=== PATIENT | female | born 1950 | race Two or more races ===

== ENCOUNTER → 2020-05-11 | Emergency (ER) | payer MEDICARE, OTHER ==
[~2020-05-11] VITALS: Ht 167.6 cm; Wt 90.7 kg
[2020-05-11 01:00] VITALS: BP 134/77
[2020-05-11 01:17] LABS: Basophils # (auto) 0.1 10 ^3/uL (0-0.2); Basophils % (auto) 0.6 % (0.0-2.0); Eosinophils # (auto) 0.3 10 ^3/uL (0-0.8); Eosinophils % (auto) 3.2 % (0.0-7.0); Hematocrit 40.3 % (36.0-46.0); Hemoglobin 13.8 g/dL (12.2-16.2); Lymphocytes # (auto) 1.8 10 ^3/uL (0.4-5.4); Lymphocytes % (auto) 20.1 % (10.0-50.0); Mean Corpuscular Hemoglobin 29.7 pg (28.0-32.0); Mean Corpuscular Hgb Conc. 34.1 g/dL (32.0-36.0); Monocytes # (auto) 0.7 10 ^3/uL (0-1.3); Monocytes % (auto) 8.3 % (0.0-12.0); Neutrophils # (auto) 6.1 10 ^3/uL (1.6-8.6); Neutrophils % (auto) 67.8 % (37.0-80.0); Nucleated Red Blood Cells % 0.1 %; Platelet Count (auto) 193 10^3/uL (140-450); Red Blood Cells 4.64 10^6/uL (4.0-5.20); Red Cell Distribution Width 14.1 % (11.8-14.3)
[2020-05-11 01:31] LABS: INR 1.03 (0.9-1.15); Partial Thromboplastin Time 30.5 sec (23.64-32.05)
[2020-05-11 01:46] LABS: Alanine Aminotransferase 35 U/L (13-56); Albumin 3.4 g/dL (3.4-5.0); Anion Gap 5 (5-15); Aspartate Aminotransferase 23 U/L (15-37); Blood Urea Nitrogen 16 mg/dL (7-18); Calcium 8.6 mg/dL (8.5-10.1); Carbon Dioxide 27 mmol/L (21-32); Chloride 107 mmol/L (98-107); GFR African American 71 mL/min; GFR Non-African American 59 mL/min; Glucose 137 mg/dL (74-106); Magnesium 2.2 mg/dL (1.6-2.6); Potassium 3.8 mmol/L (3.5-5.1); Sodium 139 mmol/L (136-145)
[2020-05-11 01:52] LABS: Alkaline Phosphatase 82 U/L (45-117); Bilirubin, Total 0.2 mg/dL (0.2-1.0); Total Protein 7.3 g/dL (6.4-8.2)
== END | disposition home or self-care (01) ==
LOC: EDUNIT# 00:05 → EDBD 00:09 → ER 00:12
DX: R00.2 Palpitations (principal); J44.9 Chronic obstructive pulmonary disease, unspecified; I10 Essential (primary) hypertension
CPT/HCPCS: 36415; 71045; 80053; 83735; 83880; 84443; 84484; 85025; 85610; 85730; 93005

== ENCOUNTER 2021-12-24 22:43 | Inpatient (IN) | payer MEDICARE, OTHER ==
[~2021-12-24] VITALS: Ht 167.6 cm; Wt 83.6 kg
[2021-12-24] MEDS ORDERED: METOPROLOL TARTRATE 1MG/1ML-5ML VIAL IV ONE ×2 (23:24→23:30)
[2021-12-25] MEDS ORDERED: dilTIAZem 25 MG/5 ML VIAL IV ONE (00:30)
[2021-12-25] MEDS ORDERED: dilTIAZem 125mg/125ml BAG KIT 125 ML IV ONE (01:15)
[2021-12-25 01:21] LABS: Hematocrit 35.1 % (36.0-46.0); Hemoglobin 11.4 g/dL (12.2-16.2); Mean Corpuscular Hemoglobin 28.7 pg (28.0-32.0); Mean Corpuscular Hgb Conc. 32.4 g/dL (32.0-36.0); Mean Corpuscular Volume 88.3 fL (80.0-100.0); Red Blood Cells 3.98 10^6/uL (4.0-5.20); Red Cell Distribution Width 15.2 % (11.8-14.3); White Blood Cell 16.3 10^3/uL (4.4-10.8)
[2021-12-25] MEDS ORDERED: NOREPINEPHRINE 8 MG/250ML KIT 250 ML IV ONE (01:37)
[2021-12-25 01:39] LABS: Albumin 2.1 g/dL (3.4-5.0); BUN/Creatinine Ratio 26.7; Basophils % (manual) 0 (0.0-2.0); Blast Cells 0; Calcium 8.5 mg/dL (8.5-10.1); Eosinophils % (manual) 0 (0-7); Metamyelocytes % 0; Promyelocytes % 0; Reactive Lymphocytes 0
[2021-12-25 01:41] LABS: Bilirubin, Total 0.5 mg/dL (0.2-1.0); Total Protein 6.8 g/dL (6.4-8.2)
[2021-12-25] MEDS ORDERED: NOREPINEPHRINE 8 MG/250ML KIT 250 ML IV SCH (01:45)
[2021-12-25 02:01] LABS: Band Neutrophils % (manual) 7; Lymphocytes % (manual) 8 (10.0-50.0); Monocytes % (manual) 2 (0-12); Myelocytes % 1
[2021-12-25 03:19] LABS: Urine Bacteria MOD /hpf (None Seen); Urine Blood Negative /uL (Negative); Urine Hyaline Cast FEW /lpf (0 - 2); Urine Mucus FEW (None Seen); Urine WBC 6 /hpf (0 - 5)
[2021-12-25] MEDS ORDERED: MORPHINE SULFATE INJECTION 2 MG/ML SYRG IV PRN ×3 (09:45→14:30)
[2021-12-25] MEDS ORDERED: ONDANSETRON HCL 4 MG/2 ML VIAL IV PRN (09:45)
[2021-12-25] MEDS ORDERED: HYDROcodone-ACET 5/325MG TAB PO PRN ×2 (10:00→14:30)
[2021-12-25] MEDS: dilTIAZem 125mg/125ml BAG KIT 100 ML IV SCH ×2 (10:11→16:35)
[2021-12-25] MEDS: NOREPINEPHRINE BITARTRATE 16 MG in SODIUM CHL 0.9% 234 ML IV SCH (14:20)
[2021-12-25] MEDS ORDERED: AZITHROMYCIN 500MG/ 250ML 250 ML IV ONE (14:30)
[2021-12-25] MEDS ORDERED: ALBUMIN 25% 100 ML IV ONE ×2 (14:30→15:00)
[2021-12-25] MEDS ORDERED: ALUM & MAG HYDROX-SIMETH LIQ(MAALOX) 30 ML PO PRN (14:30)
[2021-12-25] MEDS ORDERED: FUROSEMIDE 20 MG/2 ML VIAL IV ONE (14:30)
[2021-12-25] MEDS ORDERED: NITROGLYCERIN 0.4 MG SL TAB SL PRN (14:30)
[2021-12-25] MEDS ORDERED: LORazepam 0.5 MG TAB PO PRN (14:30)
[2021-12-25 15:24] LABS: BUN/Creatinine Ratio 31.3; Calcium 9.5 mg/dL (8.5-10.1); Potassium 3.2 mmol/L (3.5-5.1)
[2021-12-25] MEDS ORDERED: AMIODARONE HCL 150 MG in D5W 5% 100 ML IV ONE (15:30)
[2021-12-25] MEDS ORDERED: DIGOXIN (250MCG/ML) 2 ML AMPULE IV ONE (15:30)
[2021-12-25] MEDS ORDERED: AMIODARONE 450mg/250ml AE 250 ML IV SCH (15:45)
[2021-12-25 15:47] LABS: INR 1.17 (0.9-1.15); Partial Thromboplastin Time 28.9 sec (23.6-33.0)
[2021-12-25] MEDS ORDERED: POTASSIUM EFFERVESENT TAB 25 MEQ PO ONE (16:00)
[2021-12-25] MEDS: DIGOXIN (250MCG/ML) 2 ML AMPULE IV SCH ×2 (17:22→22:16)
[2021-12-25] MEDS: SODIUM CHLOR 0.9% PF (SALINE LOCK) 10ML VIAL/SYR IV SCH (22:04)
[2021-12-25] MEDS: AMIODARONE 450mg/250ml AE 250 ML IV SCH (22:34)
[2021-12-26] MEDS: DIGOXIN (250MCG/ML) 2 ML AMPULE IV SCH (05:32)
[2021-12-26] MEDS: SODIUM CHLOR 0.9% PF (SALINE LOCK) 10ML VIAL/SYR IV SCH ×3 (05:33→22:02)
[2021-12-26 07:51] LABS: Hemoglobin 10.1 g/dL (12.2-16.2); Mean Corpuscular Hemoglobin 28.7 pg (28.0-32.0); Mean Corpuscular Hgb Conc. 32.6 g/dL (32.0-36.0); Mean Corpuscular Volume 87.8 fL (80.0-100.0); Red Blood Cells 3.53 10^6/uL (4.0-5.20); Red Cell Distribution Width 15.4 % (11.8-14.3); White Blood Cell 13.5 10^3/uL (4.4-10.8)
[2021-12-26 07:59] LABS: Band Neutrophils % (manual) 0; Basophils % (manual) 0 (0.0-2.0); Blast Cells 0; Eosinophils % (manual) 0 (0-7); Metamyelocytes % 0; Promyelocytes % 0; Reactive Lymphocytes 0
[2021-12-26 08:18] LABS: Potassium 4.1 mmol/L (3.5-5.1)
[2021-12-26 08:26] LABS: BUN/Creatinine Ratio 30.8; Calcium 9.2 mg/dL (8.5-10.1)
[2021-12-26 08:52] LABS: Lymphocytes % (manual) 5 (10.0-50.0); Monocytes % (manual) 6 (0-12); Myelocytes % 2
[2021-12-26] MEDS: NOREPINEPHRINE BITARTRATE 16 MG in SODIUM CHL 0.9% 234 ML IV SCH (12:25)
[2021-12-26] MEDS: AMIODARONE 450mg/250ml AE 250 ML IV SCH (13:07)
[2021-12-26] MEDS: ONDANSETRON HCL 4 MG/2 ML VIAL IV PRN ×2 (13:52→15:47)
[2021-12-26] MEDS ORDERED: FUROSEMIDE 40 MG/4 ML VIAL IV ONE (14:15)
[2021-12-26] MEDS: ALBUTEROL SULF 2.5 MG/0.5ML(0.5%) NEB SOLN NEB SCH ×3 (14:25→22:32)
[2021-12-26] MEDS: IPRATROPIUM BROM 0.5 MG/2.5ML INH SOL NEB SCH ×3 (14:25→22:32)
[2021-12-27] MEDS: IPRATROPIUM BROM 0.5 MG/2.5ML INH SOL NEB SCH ×6 (02:00→22:17)
[2021-12-27] MEDS: ALBUTEROL SULF 2.5 MG/0.5ML(0.5%) NEB SOLN NEB SCH ×6 (02:00→22:17)
[2021-12-27] MEDS: dilTIAZem 125mg/125ml BAG KIT 100 ML IV SCH ×2 (02:13→21:45)
[2021-12-27] MEDS: SODIUM CHLOR 0.9% PF (SALINE LOCK) 10ML VIAL/SYR IV SCH ×2 (06:00→14:06)
[2021-12-27] MEDS: AMIODARONE 450mg/250ml AE 250 ML IV SCH ×2 (07:43→18:46)
[2021-12-27 07:57] LABS: Basophils # (auto) 0 10 ^3/uL (0-0.2); Basophils % (auto) 0.5 % (0.0-2.0); Eosinophils # (auto) 0 10 ^3/uL (0-0.8); Eosinophils % (auto) 0.4 % (0.0-7.0); Hematocrit 31.7 % (36.0-46.0); Hemoglobin 10.6 g/dL (12.2-16.2); Lymphocytes # (auto) 0.7 10 ^3/uL (0.4-5.4); Lymphocytes % (auto) 5.9 % (10.0-50.0); Mean Corpuscular Hemoglobin 29.3 pg (28.0-32.0); Mean Corpuscular Hgb Conc. 33.3 g/dL (32.0-36.0); Mean Corpuscular Volume 87.8 fL (80.0-100.0); Monocytes # (auto) 0.3 10 ^3/uL (0-1.3); Monocytes % (auto) 2.8 % (0.0-12.0); Neutrophils % (auto) 90.4 % (37.0-80.0); Nucleated Red Blood Cells % 0.2 %; Red Blood Cells 3.61 10^6/uL (4.0-5.20); Red Cell Distribution Width 15.1 % (11.8-14.3)
[2021-12-27 08:14] LABS: INR 1.06 (0.9-1.15); Partial Thromboplastin Time 27.7 sec (23.6-33.0)
[2021-12-27 08:25] LABS: Calcium 9.2 mg/dL (8.5-10.1); Potassium 3.7 mmol/L (3.5-5.1)
[2021-12-27] MEDS: FUROSEMIDE 20 MG/2 ML VIAL IV SCH (10:17)
[2021-12-27] MEDS: DIGOXIN 0.125 MG TAB PO SCH (10:17)
[2021-12-27] MEDS: NOREPINEPHRINE BITARTRATE 16 MG in SODIUM CHL 0.9% 234 ML IV SCH (11:00)
[2021-12-27] MEDS ORDERED: SODIUM CHLORIDE 0.9% 500 ML IV ONE (14:30)
[2021-12-27] MEDS ORDERED: POTASSIUM CHL 20 Meq TABLET PO ONE (14:30)
[2021-12-27] MEDS ORDERED: SODIUM CHLORIDE 0.9% 1,000 ML IV SCH (14:30)
[2021-12-27] MEDS ORDERED: DIGOXIN (250MCG/ML) 2 ML AMPULE IV ONE (15:15)
[2021-12-27] MEDS ORDERED: cefTRIAXone 1GM/50ML D5W 50 ML IV ONE (18:45)
[2021-12-28] MEDS: IPRATROPIUM BROM 0.5 MG/2.5ML INH SOL NEB SCH ×6 (02:13→21:39)
[2021-12-28] MEDS: ALBUTEROL SULF 2.5 MG/0.5ML(0.5%) NEB SOLN NEB SCH ×6 (02:14→21:38)
[2021-12-28 07:06] LABS: Basophils # (auto) 0 10 ^3/uL (0-0.2); Basophils % (auto) 0.1 % (0.0-2.0); Eosinophils # (auto) 0.1 10 ^3/uL (0-0.8); Eosinophils % (auto) 0.8 % (0.0-7.0); Hematocrit 28.3 % (36.0-46.0); Hemoglobin 9.4 g/dL (12.2-16.2); Lymphocytes # (auto) 0.8 10 ^3/uL (0.4-5.4); Lymphocytes % (auto) 6.6 % (10.0-50.0); Mean Corpuscular Hgb Conc. 33.2 g/dL (32.0-36.0); Mean Corpuscular Volume 87.3 fL (80.0-100.0); Monocytes # (auto) 0.4 10 ^3/uL (0-1.3); Monocytes % (auto) 2.9 % (0.0-12.0); Neutrophils % (auto) 89.6 % (37.0-80.0); Nucleated Red Blood Cells % 0.2 %; Red Blood Cells 3.24 10^6/uL (4.0-5.20); Red Cell Distribution Width 15.2 % (11.8-14.3); White Blood Cell 12.3 10^3/uL (4.4-10.8)
[2021-12-28 07:10] LABS: Calcium 8.7 mg/dL (8.5-10.1)
[2021-12-28 07:12] LABS: BUN/Creatinine Ratio 38.9
[2021-12-28] MEDS: SODIUM CHLOR 0.9% PF (SALINE LOCK) 10ML VIAL/SYR IV SCH ×3 (07:31→21:27)
[2021-12-28] MEDS: AMIODARONE 450mg/250ml AE 250 ML IV SCH (09:43)
[2021-12-28] MEDS ORDERED: dilTIAZem 120MG ER CAP PO SCH (10:00)
[2021-12-28] MEDS: FUROSEMIDE 20 MG/2 ML VIAL IV SCH (10:13)
[2021-12-28] MEDS: DIGOXIN 0.125 MG TAB PO SCH (10:13)
[2021-12-28] MEDS: NOREPINEPHRINE BITARTRATE 16 MG in SODIUM CHL 0.9% 234 ML IV SCH (11:00)
[2021-12-28] MEDS ORDERED: AMIODARONE HCL 200 MG TAB PO ONE (13:15)
[2021-12-28 16:26] VITALS: BP 95/54
[2021-12-28 16:49] VITALS: BP 98/52
[2021-12-28] MEDS ORDERED: INFLUENZA QUAD 2021-2022 0.5 ML SYRG IM ONE (17:15)
[2021-12-28] MEDS ORDERED: PNEUMOCOCCAL VACC POLYS 25 MCG/0.5 ML VIAL IM ONE (17:15)
[2021-12-28] MEDS: ONDANSETRON HCL 4 MG/2 ML VIAL IV PRN (20:36)
[2021-12-28] MEDS: AMIODARONE HCL 200 MG TAB PO SCH (21:28)
[2021-12-29 00:30] VITALS: BP 108/46
[2021-12-29] MEDS: IPRATROPIUM BROM 0.5 MG/2.5ML INH SOL NEB SCH ×3 (01:08→19:19)
[2021-12-29] MEDS: SODIUM CHLOR 0.9% PF (SALINE LOCK) 10ML VIAL/SYR IV SCH ×3 (05:55→21:58)
[2021-12-29] MEDS: ACETAMINOPHEN 325 MG TAB PO PRN ×2 (05:59→20:24)
[2021-12-29] MEDS: ALBUTEROL SULF 2.5 MG/0.5ML(0.5%) NEB SOLN NEB SCH (06:24)
[2021-12-29 09:00] VITALS: BP 110/52
[2021-12-29] MEDS: FUROSEMIDE 20 MG/2 ML VIAL IV SCH (09:28)
[2021-12-29] MEDS: DIGOXIN 0.125 MG TAB PO SCH (09:28)
[2021-12-29] MEDS: AMIODARONE HCL 200 MG TAB PO SCH ×2 (09:28→22:08)
[2021-12-29] MEDS: dilTIAZem 120MG ER CAP PO SCH ×2 (09:29→11:41)
[2021-12-29] MEDS ORDERED: POTASSIUM CHL 20 Meq TABLET PO ONE (13:30)
[2021-12-29 17:00] VITALS: BP 112/43
[2021-12-29] MEDS: LEVALBUTEROL HCL 1.25 MG/3 ML NEB NEB SCH (19:19)
[2021-12-29 22:00] VITALS: BP 120/51
[2021-12-30] MEDS: IPRATROPIUM BROM 0.5 MG/2.5ML INH SOL NEB SCH ×4 (00:23→19:41)
[2021-12-30] MEDS: LEVALBUTEROL HCL 1.25 MG/3 ML NEB NEB SCH ×4 (00:23→19:41)
[2021-12-30 05:13] VITALS: BP_SYST 121; BP_DIAS 54; BP_DIAS 61
[2021-12-30] MEDS: ACETAMINOPHEN 325 MG TAB PO PRN ×2 (05:49→22:57)
[2021-12-30] MEDS: SODIUM CHLOR 0.9% PF (SALINE LOCK) 10ML VIAL/SYR IV SCH ×3 (05:50→22:00)
[2021-12-30 06:01] LABS: Potassium 4.3 mmol/L (3.5-5.1)
[2021-12-30 06:19] LABS: BUN/Creatinine Ratio 34.7; Calcium 9.4 mg/dL (8.5-10.1); Magnesium 2.5 mg/dL (1.6-2.6)
[2021-12-30 09:00] VITALS: BP 121/61
[2021-12-30] MEDS: FUROSEMIDE 20 MG/2 ML VIAL IV SCH (11:39)
[2021-12-30] MEDS: dilTIAZem 120MG ER CAP PO SCH (11:40)
[2021-12-30] MEDS: AMIODARONE HCL 200 MG TAB PO SCH ×2 (11:41→22:46)
[2021-12-30 13:00] VITALS: BP 113/57
[2021-12-30 17:00] VITALS: BP 108/51
[2021-12-30] MEDS: ONDANSETRON HCL 4 MG/2 ML VIAL IV PRN (19:47)
[2021-12-30 22:00] VITALS: BP 116/55
[2021-12-31] MEDS: ACETAMINOPHEN 325 MG TAB PO PRN ×5 (04:22→22:10)
[2021-12-31 04:41] VITALS: BP 108/51
[2021-12-31] MEDS: LEVALBUTEROL HCL 1.25 MG/3 ML NEB NEB SCH ×4 (06:00→17:38)
[2021-12-31] MEDS: IPRATROPIUM BROM 0.5 MG/2.5ML INH SOL NEB SCH ×4 (06:00→17:38)
[2021-12-31] MEDS: SODIUM CHLOR 0.9% PF (SALINE LOCK) 10ML VIAL/SYR IV SCH ×3 (06:10→21:41)
[2021-12-31 08:45] VITALS: BP 115/47
[2021-12-31] MEDS: FUROSEMIDE 20 MG/2 ML VIAL IV SCH (10:19)
[2021-12-31] MEDS: dilTIAZem 120MG ER CAP PO SCH (10:20)
[2021-12-31] MEDS: AMIODARONE HCL 200 MG TAB PO SCH ×2 (10:20→22:10)
[2021-12-31] MEDS ORDERED: TAMS1CAP25 PO (13:55)
[2021-12-31] MEDS ORDERED: ONDA-144 PO (13:55)
[2021-12-31] MEDS ORDERED: ALL100T PO (13:55)
[2021-12-31] MEDS ORDERED: PANT40PA PO (13:55)
[2021-12-31] MEDS ORDERED: HYDR-4902 PO (13:55)
[2021-12-31] MEDS ORDERED: FLUT1SPR5 (13:55)
[2021-12-31] MEDS ORDERED: DEX4T PO (13:55)
[2021-12-31] MEDS ORDERED: FURO40TA4 PO (13:55)
[2021-12-31] MEDS ORDERED: [UNRECOGNIZED DRUG - CODE] PO (13:55)
[2021-12-31] MEDS ORDERED: POTA-220 PO (13:55)
[2021-12-31] MEDS ORDERED: ALBU108A5 IN (13:55)
[2021-12-31] MEDS ORDERED: [UNRECOGNIZED DRUG - CODE] IN (13:55)
[2021-12-31] MEDS ORDERED: PRAV20TA3 PO (13:55)
[2021-12-31] MEDS: DexAMETHasone 4 MG TAB PO SCH ×2 (16:04→22:10)
[2021-12-31 22:00] VITALS: BP 116/51
[2022-01-01] MEDS: LEVALBUTEROL HCL 1.25 MG/3 ML NEB NEB SCH ×3 (00:01→13:55)
[2022-01-01] MEDS: IPRATROPIUM BROM 0.5 MG/2.5ML INH SOL NEB SCH ×3 (00:01→13:55)
[2022-01-01 04:52] VITALS: BP 108/47
[2022-01-01] MEDS: SODIUM CHLOR 0.9% PF (SALINE LOCK) 10ML VIAL/SYR IV SCH ×2 (06:17→14:00)
[2022-01-01] MEDS: DexAMETHasone 4 MG TAB PO SCH ×2 (06:17→14:31)
[2022-01-01] MEDS: ACETAMINOPHEN 325 MG TAB PO PRN ×2 (07:45→14:31)
[2022-01-01] MEDS ORDERED: AMIO200T4 PO (09:03)
[2022-01-01] MEDS ORDERED: DILT120C12 PO (09:03)
[2022-01-01] MEDS: dilTIAZem 120MG ER CAP PO SCH (10:53)
[2022-01-01] MEDS: AMIODARONE HCL 200 MG TAB PO SCH (10:54)
[2022-01-01] MEDS: FUROSEMIDE 20 MG/2 ML VIAL IV SCH (10:54)
== END 2022-01-01 17:25 | disposition home or self-care (01) | DRG 871 ==
LOC: EDBD 22:43 → ER 22:43 → OVERFLOW 12-25 14:19 → UNDOADMIN 12-25 14:19 → TELE-CENTR 12-25 14:28 → OVERFLOW 12-28 15:00 → TELE-CENTR 12-28 15:00 → UNDODISIN 01-01 16:35
PROVIDERS: ADMIT Internal Medicine; ATTEND Internal Medicine
PROC: 02HV33Z Insertion of Infusion Device into Superior Vena Cava, Percutaneous Approach (ICD-10-PCS; principal; 2021-12-25)
DX: A41.9 Sepsis, unspecified organism (principal); R57.0 Cardiogenic shock; J18.9 Pneumonia, unspecified organism; I50.23 Acute on chronic systolic (congestive) heart failure; C34.90 Malignant neoplasm of unspecified part of unspecified bronchus or lung; J44.0 Chronic obstructive pulmonary disease with (acute) lower respiratory infection; J96.10 Chronic respiratory failure, unspecified whether with hypoxia or hypercapnia; Z20.822 Contact with and (suspected) exposure to COVID-19; E66.01 Morbid (severe) obesity due to excess calories; I27.20 Pulmonary hypertension, unspecified; I48.91 Unspecified atrial fibrillation; I07.1 Rheumatic tricuspid insufficiency; I11.0 Hypertensive heart disease with heart failure; E78.5 Hyperlipidemia, unspecified; E87.6 Hypokalemia; Z88.1 Allergy status to other antibiotic agents; Z88.0 Allergy status to penicillin; Z68.30 Body mass index [BMI] 30.0-30.9, adult; Z74.01 Bed confinement status; Z85.118 Personal history of other malignant neoplasm of bronchus and lung
CPT/HCPCS: 36415; 36556; 71045; 71260; 74177; 80048; 80053; 80162; 81001; 82306; 83036; 83605; 83690; 83735; 83880; 84132; 84443; 84484; 85007; 85025; 85027; 85610; 85730; 87081; 87426; 93005; 93306; 94640; 96365; 96375; 99291; G0378; J0696; J2405; J7060; P9047